=== PATIENT | male | born 1985 | race Caucasian/White ===

== ENCOUNTER 2017-09-27 09:42 | Day surgery (SDC) | payer OTHER ==
--- NOTE | 2017-09-27 07:50 | HP ---
DATE OF SURGERY: 09/27/2017 HISTORY OF PRESENT ILLNESS: The patient is a 32 year-old with bulging abdomen increased size the past six months. He has lost some weight. He has ventral hernia in mid abdomen would benefit from repair. PAST MEDICAL HISTORY: Hypertension. MEDICATIONS: Lisinopril. ALLERGIES: PENICILLIN. FAMILY HISTORY: Diabetes. SOCIAL HISTORY: No smoking. Rare alcohol use. REVIEW OF SYSTEMS: He has some pectus excavatum. Twelve systems reviewed per admission assessment. No chest pain or palpitations other systems negative or noncontributory as above and per preadmission questionnaire. PHYSICAL EXAMINATION: GENERAL: No acute distress. HEENT: Sclerae nonicteric. NECK: No JVD. CHEST: Equal excursion, nonlabored breathing. CVS: Regular rate and rhythm. ABDOMEN: Soft. Incarcerated ventral hernia mid abdomen with likely some preperitoneal fat. I felt he would benefit from repair. Otherwise no peritoneal signs. EXTREMITIES: No edema. NEURO: Alert, moving extremities symmetrically. No gross motor deficits noted. IMPRESSION: Incarcerated mid abdomen ventral hernia likely incarcerated fat. I feel he would benefit from repair. 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 He understands and agrees to the planned procedure and will proceed with repair of mid abdomen incarcerated ventral hernia repair with mesh as an outpatient.
[~2017-09-27 09:42] MED LIST: Lactated Ringers 1,000 ML IV ONE; Sensorcaine 0.25% 10 ML ONE
[2017-09-27] MEDS ORDERED: BRIDION 200MG/2ML IV ONE (09:43)
[2017-09-27] MEDS ORDERED: Zofran 4 MG/2 ML VIAL IV ONE (09:43)
[2017-09-27] MEDS ORDERED: Versed 2 MG/2 ML Injection IV ONE (09:43)
[2017-09-27] MEDS ORDERED: DIPRIVAN 200 MG/20 ML IV ONE (09:43)
[2017-09-27] MEDS ORDERED: MARCAINE 0.5%-EPI 1:200,000 VL IJ ONE (09:43)
[2017-09-27] MEDS ORDERED: SUBLIMAZE 250 MCG/5 ML IJ ONE (09:43)
[2017-09-27] MEDS ORDERED: CLINDAMYCIN-D5W 900 MG/50 ML*** 900 MG/50 ML BAG IV SCH (10:30)
[2017-09-27] MEDS ORDERED: Lactated Ringers 1,000 ML IV SCH (10:30)
[2017-09-27 16:32] VITALS: BP 126/55; PULSE 62; O2SAT 96
--- NOTE | 2017-09-28 11:06 | OP ---
SURGERY DATE/TIME: 09/27/2017 1358 PREOPERATIVE DIAGNOSIS: Umbilical area ventral hernia. POSTOPERATIVE DIAGNOSIS: Umbilical area ventral hernia. PROCEDURE: Repair of incarcerated umbilical area ventral hernia repaired with mesh. SURGEON: Dr. Daniel Eller. ANESTHESIA: General. ESTIMATED BLOOD LOSS: Minimal. INDICATIONS: As noted above. Risks and benefits explained in detail but not limited to and consent obtained. The site is confirmed in the preoperative holding area. DESCRIPTION OF PROCEDURE AND FINDINGS: Taken to the operating room. General anesthesia induced. Abdomen prepped and draped in usual sterile fashion. After official time out and no disagreement with planned procedure, a transverse incision made. Dissection carried down circumferentially around this moderately large incarcerated omentum and preperitoneal fat. It was carefully from the surrounding tissue. Dissecting down to the level of the fascia. It was necessary to enlarge the fascial defect slightly to allow this large incarcerated adipose tissue reduce back down in the abdomen. Once this was accomplished posterior fascia cleared circumferentially around as it was felt the defect was large enough to warrant mesh and a small piece of mesh used. It was felt the size [address] mesh was the most appropriate mesh carefully inserted to make sure it was flat circumferentially around the area then secured 1 cm apart around the edges with tension-free bites of 0 Prolene, a 1 cm apart around the circumference. Once this was accomplished good hemostasis was noted. Attenuated fascia of the defect itself was then closed over the top of the mesh creating a second layer of repair with interrupted 0 PDS. Once this was accomplished the hernia was then tacked back down in inverted fashion back to the level of the fascia with 3-0 Vicryl. Superficial subcu closed with 3-0 Vicryl. Skin closed with 4-0 Vicryl. Steri-Strips and sterile dressing applied. 0.25% Marcaine local injected along the skin area, fascial defect with anesthesia applying TAP (transversus abdominis plane) blocks at the end of the procedure. There were no immediate complications. He will be transferred to the recovery room following TAP blocks. Findings discussed with the family out in the waiting area.
== END 2017-09-27 16:43 | disposition home or self-care (01) ==
LOC: SDC 09:42
PROVIDERS: ATTEND Surgery
DX: K43.6 Other and unspecified ventral hernia with obstruction, without gangrene (principal); I10 Essential (primary) hypertension; Z79.899 Other long term (current) drug therapy
CPT/HCPCS: 64488; 76937; 76942; C1781; J2250; J2405; J2704; J3010; L0625